=== PATIENT | male | born 1975 | race Caucasian/White ===

== ENCOUNTER 2019-01-25 17:32 | Outpatient (CLI) | payer BC ==
--- NOTE | 2019-01-25 18:49 | RAD ---
EXAM: Chest PA and lateral: HISTORY: Hydradenitis suppurativa Assess for TB, starting Humira medication COMPARISON: None FINDINGS: Heart size:Within normal limits. Lungs:Clear of acute process. No confluent pneumonia, overt edema, pleural effusion, or other acute process. IMPRESSION: No significant acute intrathoracic disease. No evidence for active TB.
== END 2019-01-25 17:33 | disposition home or self-care (01) ==
LOC: SCSRAD 17:32
PROVIDERS: ATTEND Dermatology
DX: L73.2 Hidradenitis suppurativa (principal); Z71.89 Other specified counseling
CPT/HCPCS: 36415; 71046; 86480